=== PATIENT | female | born 1985 | race American Indian/Alaskan Native ===

== ENCOUNTER 2016-10-19 11:20 | Emergency (ER) | payer SELFPAY ==
[2016-10-19 12:02] VITALS: BP 127/77
[2016-10-19] MEDS ORDERED: TORADOL IM ONE (13:02)
--- NOTE | 2016-10-19 13:36 | XRay Report ---
RIGHT FOOT RADIOGRAPHS INDICATION: Pain with swelling. COMPARISON: None similar at this institution. FINDINGS: AP, lateral and oblique views of the right foot demonstrate normal bones, joints and soft tissues. CONCLUSION: No acute bony abnormality. Thank you for the opportunity to participate in this patient's care.
--- NOTE | 2016-10-19 21:41 | Emergency Department Report ---
Entered by JOHN ADAMES, acting as scribe for ALIZA YATES NP. ED Lower Extremity HPI - General Chief Complaint: Extremity Injury, Lower Stated Complaint: RT FOOT PAIN Time Seen by Provider: 10/19/16 12:19 Source: patient Mode of arrival: Ambulatory Limitations: No Limitations - History of Present Illness Initial Comments: This is a 31 y/o female with a PMHx of asthma presents to the ED c/o right foot pain that began today. Rates pain a 10/10 in severity, which she describes as throbbing in quality. Aggravated with movement, palpation, and weight bearing, and alleviated with immobilization. Associated right foot swelling, but she denies any right foot injury/trauma, fever, chills, chest pain, SOB, PEREYRA or dizziness, numbness, tingling. Denies PMHx of gout. Allergic to penicillins. MD Complaint: other (foot pain) Onset/Timin -: days(s) Injury: Foot: Right, Toes: Right Type of Injury: unknown Place: home Severity: severe Severity scale (0 -10): 10 Improves With: immobilization Worsens With: weight bearing, movement, palpation Associated Symptoms: swelling (right foot), able to partially bear weight, ambulatory. denies: snap/pop sensation, numbness, tingling - Related Data Previous Rx's Medication Instructions Recorded Last Taken Type Ibuprofen [Motrin 600 MG tab] 600 mg PO Q8H PRN #30 tablet 10/19/16 Unknown Rx Sulfamethoxazole/Trimethoprim 1 each PO BID #14 tablet 10/19/16 Unknown Rx [Bactrim DS TAB] Allergies Allergy/AdvReac Type Severity Reaction Status Date / Time Penicillins AdvReac Swelling Verified 10/19/16 12:03 ED Review of Systems Comment: All other systems reviewed and negative Constitutional: denies: chills, fever Eyes: denies: eye pain, eye discharge, vision change ENT: denies: ear pain, throat pain Respiratory: denies: cough, orthopnea, shortness of breath, SOB with exertion, SOB at rest, stridor, wheezing Cardiovascular: denies: chest pain, palpitations, dyspnea on exertion, orthopnea , edema, syncope, paroxysmal nocturnal dyspnea Endocrine: no symptoms reported Gastrointestinal: denies: abdominal pain, nausea, vomiting, diarrhea Genitourinary: denies: urgency, dysuria, discharge Musculoskeletal: arthralgia (right foot pain). denies: back pain, joint swelling, myalgia Skin: denies: rash, lesions Neurological: denies: headache, weakness, numbness, paresthesias Psychiatric: denies: anxiety, depression Hematological/Lymphatic: denies: easy bleeding, easy bruising ED Past Medical Hx - Past Medical History Previous Medical History?: Yes Hx Asthma: Yes - Surgical History Past Surgical History?: Yes Additional Surgical History: c-sections - Family History Family history: no significant - Social History Smoking Status: Current Every Day Smoker Substance Use Type: Alcohol - Medications Home Medications: Home Medications Medication Instructions Recorded Confirmed Last Taken Type Ibuprofen [Motrin 600 MG tab] 600 mg PO Q8H PRN #30 tablet 10/19/16 Unknown Rx Sulfamethoxazole/Trimethoprim 1 each PO BID #14 tablet 10/19/16 Unknown Rx [Bactrim DS TAB] ED Physical Exam - General Limitations: No Limitations General appearance: alert, in no apparent distress - Head Head exam: Present: atraumatic, normocephalic - Eye Eye exam: Present: normal appearance, PERRL, EOMI. Absent: scleral icterus, conjunctival injection, nystagmus, periorbital swelling, periorbital tenderness Pupils: Present: normal accommodation - ENT ENT exam: Present: normal exam, normal orophraynx, mucous membranes moist, TM's normal bilaterally, normal external ear exam - Neck Neck exam: Present: normal inspection, full ROM. Absent: tenderness, meningismus, lymphadenopathy, thyromegaly - Respiratory Respiratory exam: Present: normal lung sounds bilaterally. Absent: respiratory distress, wheezes, rales, rhonchi, stridor, chest wall tenderness, accessory muscle use, decreased breath sounds, prolonged expiratory - Cardiovascular Cardiovascular Exam: Present: regular rate, normal rhythm, normal heart sounds. Absent: bradycardia, tachycardia, irregular rhythm, systolic murmur, diastolic murmur, rubs, gallop - GI/Abdominal GI/Abdominal exam: Present: soft, normal bowel sounds. Absent: distended - Rectal Rectal exam: Present: deferred - Extremities Exam Extremities exam: Present: full ROM, tenderness, normal capillary refill. Absent: normal inspection, pedal edema, joint swelling, calf tenderness - Expanded Lower Extremity Exam Right Hip exam: Present: normal inspection, full ROM, external rotation, internal rotation, pelvic stability. Absent: tenderness, swelling, abrasion, laceration , ecchymosis, deformity, crepidus, dislocation, erythema, shortening Upper Leg exam: Present: normal inspection, full ROM. Absent: tenderness, swelling, abrasion, laceration, ecchymosis, deformity, crepidus, dislocation, erythema Knee exam: Present: normal inspection, full ROM, full knee extension. Absent: tenderness, swelling, abrasion, laceration, ecchymosis, deformity, crepidus, dislocation, erythema, effusion, pain w/ pronation/supination, posterior draw sign, pain/laxity with valgus, pain/laxity with varus Lower Leg exam: Present: normal inspection, full ROM. Absent: tenderness, swelling, abrasion, laceration, ecchymosis, deformity, crepidus, dislocation, erythema, palpable cord, Cassidy's sign Ankle exam: Present: normal inspection, full ROM. Absent: tenderness, swelling , abrasion, laceration, ecchymosis, deformity, crepidus, dislocation, erythema, anterior draw sign Foot/Toe exam: Present: full ROM (painful dorsiflexion and plantar flexion to right foot, and painful ROM to right toes), tenderness (dorsal aspect of right foot ), swelling (right dorsal forefoot), erythema (dorsal aspect of right foot) . Absent: normal inspection, abrasion, laceration, ecchymosis, deformity, crepidus, dislocation, amputation, puncture wound, foreign body, calcaneal tenderness, tenderness at base of 5th metatarsal, nail avulsion, subungual hematoma Neuro vascular tendon exam: Present: no vascular compromise (2+ dorsalis pedis pulses). Absent: pulse deficit, abnormal cap refill, motor deficit, sensory deficit, tendon deficit, extremity cold to touch, pallor, abnormal 2-point discrimination, decreased fine/light touch, foot drop, peroneal nerve deficit, significant pain with passive ROM of distal joint Gait: Positive: observed and limited by pain 1 - swelling, TTP, and erythema. - Back Exam Back exam: Present: normal inspection, full ROM. Absent: tenderness, CVA tenderness (R), CVA tenderness (L), muscle spasm, paraspinal tenderness, vertebral tenderness, rash noted - Neurological Exam Neurological exam: Present: alert, oriented X3, CN II-XII intact, normal gait ( limited by right foot pain), reflexes normal. Absent: motor sensory deficit - Psychiatric Psychiatric exam: Present: normal affect, normal mood - Skin Skin exam: Present: warm, dry, intact. Absent: rash, cyanosis, abrasion, ecchymosis ED Course Vital Signs 10/19/16 11:59 Temperature 97.9 F Pulse Rate 88 Respiratory 16 Rate Blood Pressure 127/77 O2 Sat by Pulse 100 Oximetry - Reevaluation(s) Reevaluation #1: 10/19/16 13:22 Patient is speaking in full sentences with no signs of distress noted. ED Lower Extremity MDM - Medical Decision Making 31-year-old female that presents to the ED with swelling and redness of right foot. Exam is consistent with cellulitis. Area is warm to touch. No jonit redness or joint swelling noted. Normal ROM. Xray has been obtained with no abnormalities. Pt was notified of xray findings with no further questions noted. Pt received tordal in the ED. Pt will be d/c with bactrim and motrin. Pt was instructed to follow-up with primary care doctor in 3-5 days or if symptoms worsen return to the ED as soon as possible. ED Disposition Clinical Impression: Cellulitis Qualifiers: Site of cellulitis: extremity Site of cellulitis of extremity: toe Laterality: right Qualified Code(s): L03.031 - Cellulitis of right toe Disposition: - TO HOME OR SELFCARE Is pt being admited?: No Does the pt Need Aspirin: No Condition: Stable Instructions: Cellulitis (ED), Ibuprofen (By mouth), Sulfamethoxazole/ Trimethoprim (By mouth) Additional Instructions: follow-up with primary care doctor/orthopedic in 3-5 days or if symptoms worsen and continue to return to the emergency as soon as possible. Prescriptions: Ibuprofen [Motrin 600 MG tab] 600 mg PO Q8H PRN #30 tablet PRN Reason: Pain Sulfamethoxazole/Trimethoprim [Bactrim DS TAB] 1 each PO BID #14 tablet Referrals: PRIMARY CARE, [Primary Care Provider] - 3-5 Days HEATHER SANDOVAL MD [Staff Physician] - 3-5 Days TIM AGUIAR MD [Staff Physician] - 3-5 Days [facility] [Outside] - 3-5 Days [facility] [Outside] - 3-5 Days Forms: Work/School Release Form(ED) This documentation as recorded by the ZACARIAS birch JASMINE,accurately reflects the service I personally performed and the decisions made by me,ALIZA YATES, URINALYSIS TECHNICIAN.
== END 2016-10-19 14:00 | disposition home or self-care (01) ==
LOC: ED 11:20
DX: L03.115 Cellulitis of right lower limb (principal); J45.909 Unspecified asthma, uncomplicated; F17.210 Nicotine dependence, cigarettes, uncomplicated; Z88.0 Allergy status to penicillin
CPT/HCPCS: 73630; 96372; 99283; J1885

== ENCOUNTER 2016-11-05 15:13 | Emergency (ER) | payer SELFPAY ==
[2016-11-05] MEDS ORDERED: DELTASONE ONE (15:29)
[2016-11-05] MEDS ORDERED: REGLAN ONE (15:29)
[2016-11-05] MEDS ORDERED: BENADRYL PO ONE ×2 (15:29→15:34)
[2016-11-05] MEDS ORDERED: DELTASONE PO ONE (15:33)
[2016-11-05] MEDS ORDERED: REGLAN PO ONE (15:34)
[2016-11-05 15:42] VITALS: BP 117/88
== END 2016-11-05 16:50 | disposition left against medical advice (07) ==
LOC: ED 15:13
DX: R06.00 Dyspnea, unspecified (principal); R21 Rash and other nonspecific skin eruption; Z53.21 Procedure and treatment not carried out due to patient leaving prior to being seen by health care provider
CPT/HCPCS: J7512